=== PATIENT | male | born 1970 | race Caucasian/White ===

== ENCOUNTER 2016-12-28 13:55 | Emergency (ER) | payer OTHER ==
[~2016-12-28] VITALS: Ht 180.3 cm; Wt 109.9 kg
[2016-12-28 14:02] VITALS: TEMP 36.6; Ht 180.3 cm; Wt 109.9 kg
[2016-12-28] MEDS ORDERED: SODIUM CHLORIDE 0.9% 1000ML 1,000 ML IV STA (14:18)
--- NOTE | 2016-12-28 14:25 | EMERGENCY ROOM VISIT NOTE ---
History First contact with patient: 14:10 Chief Complaint: ABDOMINAL PAIN Stated Complaint: INTERNAL BLOCKAGE INTESTINES,SEVERE PAIN ON L SIDE Nursing Triage Summary: triage note: pt reports last bm was wednesday. pt reports he feels constipated and has left lower back pain "that pain started on december 19 when i started to feel constipated." History of Present Illness The patient is a 46 year old male who presents to the Emergency Room with complaints of constipation, flank pain and abdominal pain. The patient states it has been one week since his last normal bowel movement. He states that he has only had 2 bowel movements since December 19. He states that Wednesday he took several laxatives and had a bowel movement. He states that he has had pain in his left flank and in the left lower abdomen. The patient states the pain is rated a 5/10. The pain is worse with movement. He denies any fevers. He denies any pain in his chest or trouble breathing. He denies any nausea or vomiting. He denies diarrhea. He denies urinary symptoms. He denies any history of kidney stone or diverticulitis. He has had a colonoscopy in the past. He denies history of kidney stone. He reports a history of back problems and drives a truck for a living. He denies loss of bowel or bladder control, saddle anesthesia, numbness, tingling, weakness in the legs. Review of Systems A 10 system review of systems was completed with positives and pertinent negatives listed in the HPI. Past Medical/Surgical History Medical Problems: (1) Rheumatoid arthritis Social History Smoking Status: Current Every Day Smoker Occupation Status: employed Current/Historical Medications Scheduled PRN Prednisone (Prednisone), Unknown Dose PO for . Sulindac (Clinoril), Unknown Dose PO for . Allergies Coded Allergies: BEE STING (Unverified Allergy, Severe, 12/28/16) Physical Exam Vital Signs Date Time Temp Pulse Resp B/P (MAP) Pulse Ox O2 Delivery O2 Flow Rate FiO2 12/28/16 17:00 69 16 138/76 95 Room Air 12/28/16 16:00 67 18 131/71 96 Room Air 12/28/16 14:02 36.6 82 18 166/94 95 Room Air Physical Exam VITALS: Vitals are noted on the nurse's note and reviewed by myself. Vital signs stable. The patient is afebrile. He is not tachycardic, tachypneic or hypotensive. GENERAL: This is a 46-year-old male, in no acute distress, nondiaphoretic, well- developed well-nourished. SKIN: The skin was without rashes, erythema, edema, or bruising. There is no tenting of the skin. Capillary reflex less than 2 seconds. HEAD: Normocephalic atraumatic. EARS: The external ears are normal in appearance. EYES: Pupils equal round and reactive to light and accommodation. Conjunctivae without injection, sclerae without icterus. Extraocular movements intact. NOSE: Patent, turbinates without inflammation or discharge. MOUTH: Mucous membranes moist. Tonsils are not enlarged. Pharynx without erythema or exudate. Uvula midline. Airway patent. Tongue does not deviate. NECK: Supple without nuchal rigidity. No JVD. HEART: Regular rate and rhythm without murmurs gallops or rubs. LUNGS: Clear to auscultation bilaterally without wheezes, rales or rhonchi. No retractions or accessory muscle use. ABDOMEN: Positive bowel sounds x 4, hypoactive. Soft, mild left lower quadrant tenderness, without masses or organomegaly. There is mild tenderness to palpation over the left paraspinous muscles in the lumbar area. There is mild CVA tenderness. MUSCULOSKELETAL: No muscle atrophy, erythema, or edema noted. Full range of motion without joint tenderness in all extremities. No tenderness to palpation. Normal gait. Strength 5/5 throughout. NEURO: Patient was alert and oriented to person place and time. No focal neurological deficits. Medical Decision & Procedures ER Provider Diagnostic Interpretation: ABD/PELVIS NO IV OR ORAL CONT HISTORY: 46 years-old Male abdominal pain acute generalized abdominal pain, most pronounced in the left lower quadrant. Initial exam. COMPARISON: None available. TECHNIQUE: Multiple axial CT images of the abdomen and pelvis were obtained without contrast. A dose lowering technique was used consistent with the principals of ALARA. FINDINGS: Mild dependent bibasilar atelectasis. 4 mm pleural-based nodule of the lateral segment right middle lobe is noted on axial image 13. There is no pneumoperitoneum. The imaged inferior cardiac chambers are unremarkable. Nonspecific 5 mm low attenuating lesion involves the hepatic dome, too small to characterize. Statistically this would favor a cyst or hemangioma. The spleen, pancreas, gallbladder and adrenal glands appear normal. Kidneys, ureters, urinary bladder and prostate are unremarkable. Minimal atherosclerotic plaquing of the abdominal aorta is noted. No bulky adenopathy. No bowel obstruction. Nonspecific 5 mm calcification is seen involving the mid mesentery. There are a few scattered noninflamed colonic diverticula noted. The appendix and terminal ileum appear normal. Small fat filled periumbilical hernia is noted, diastases 1.5 cm. Remote appearing bilateral pars defects are seen at L4-L5 and L5-S1. Annular disc bulging is also noted at these levels. IMPRESSION: 1. No acute intra-abdominal or intrapelvic abnormality identified. Normal appendix. 2. Small fat filled periumbilical hernia. 3. 4 mm pleural-based noncalcified pulmonary nodule of the lateral segment right middle lobe, likely benign. 4. Remote appearing bilateral pars defects at L4-L5 and L5-S1 with annular disc bulging also seen at these levels. 5. Minimal colonic diverticulosis without diverticulitis. Please refer to below summary of Fleischner criteria recommendations for follow-up of incidental CT nodules (Emilee Bishop, Guidelines for management of small pulmonary nodules detected on CT scans: A statement from the Fleischner Society, Radiology 237: [id number].) SOLID NODULES Solitary nodule size: <6 mm * Low risk patients: no follow-up needed * high risk patients: optional CT at 12 months Note: newly detected indeterminate nodule in persons 35 years of age or older. * Low risk patients: minimal or absent history of smoking and/or other known risk factors * high risk patients: history of smoking or of other known risk factors (e.g. first degree relative with lung cancer, or exposure to asbestos, radon, uranium) * if a nodule up to 8 mm is partly solid or is ground glass further follow-up is required after 24 months to exclude possible slow growing adenocarcinoma (JULIO) The above report was generated using voice recognition software. It may contain grammatical, syntax or spelling errors. Laboratory Results 12/28/16 14:25 Red Blood Count 5.26, Mean Corpuscular Volume 90.9, Mean Corpuscular Hemoglobin 32.9, Mean Corpuscular Hemoglobin Concent 36.2, Mean Platelet Volume 9.3, Neutrophils (%) (Auto) 60.9, Lymphocytes (%) (Auto) 30.4, Monocytes (%) (Auto) 4.0, Eosinophils (%) (Auto) 3.7, Basophils (%) (Auto) 0.2, Neutrophils # (Auto) 3.65, Lymphocytes # (Auto) 1.82, Monocytes # (Auto) 0.24, Eosinophils # (Auto) 0.22, Basophils # (Auto) 0.01 12/28/16 14:25 Test 12/28/16 14:25 12/28/16 14:45 White Blood Count 5.99 K/uL (4.8-10.8) Red Blood Count 5.26 M/uL (4.7-6.1) Hemoglobin 17.3 g/dL (14.0-18.0) Hematocrit 47.8 % (42-52) Mean Corpuscular Volume 90.9 fL (80-100) Mean Corpuscular Hemoglobin 32.9 pg (25-34) Mean Corpuscular Hemoglobin Concent 36.2 g/dl (32-36) Platelet Count 251 K/uL (130-400) Mean Platelet Volume 9.3 fL (7.4-10.4) Neutrophils (%) (Auto) 60.9 % Lymphocytes (%) (Auto) 30.4 % Monocytes (%) (Auto) 4.0 % Eosinophils (%) (Auto) 3.7 % Basophils (%) (Auto) 0.2 % Neutrophils # (Auto) 3.65 K/uL (1.4-6.5) Lymphocytes # (Auto) 1.82 K/uL (1.2-3.4) Monocytes # (Auto) 0.24 K/uL (0.11-0.59) Eosinophils # (Auto) 0.22 K/uL (0-0.5) Basophils # (Auto) 0.01 K/uL (0-0.2) RDW Standard Deviation 43.6 fL (36.4-46.3) RDW Coefficient of Variation 13.3 % (11.5-14.5) Immature Granulocyte % (Auto) 0.8 % Immature Granulocyte # (Auto) 0.05 K/uL (0.00-0.02) Anion Gap 4.0 mmol/L (3-11) Est Creatinine Clear Calc Drug Dose 116.2 ml/min Estimated GFR () 105.2 Estimated GFR (Non- 90.8 BUN/Creatinine Ratio 6.4 (10-20) Calcium Level 8.7 mg/dl (8.5-10.1) Total Bilirubin 0.7 mg/dl (0.2-1) Aspartate Amino Transf (AST/SGOT) 11 U/L (15-37) Alanine Aminotransferase (ALT/SGPT) 19 U/L (12-78) Alkaline Phosphatase 73 U/L (45-117) Total Protein 7.2 gm/dl (6.4-8.2) Albumin 3.5 gm/dl (3.4-5.0) Globulin 3.7 gm/dl (2.5-4.0) Albumin/Globulin Ratio 0.9 (0.9-2) Lipase 95 U/L (73-393) Urine Color YELLOW Urine Appearance CLEAR (CLEAR) Urine pH 7.0 (4.5-7.5) Urine Specific [place] 1.013 (1.000-1.030) Urine Protein NEG (NEG) Urine Glucose (UA) NEG (NEG) Urine Ketones NEG (NEG) Urine Occult Blood NEG (NEG) Urine Nitrite NEG (NEG) Urine Bilirubin NEG (NEG) Urine Urobilinogen NEG (NEG) Urine Leukocyte Esterase NEG (NEG) Medications Administered Medications (Trade) Dose Ordered Sig/Radha Route Start Time Stop Time Status Last Admin Dose Admin Sodium Chloride 1,000 ml @ 999 mls/hr Q1H1M STAT IV 12/28/16 14:18 12/28/16 15:18 DC 12/28/16 14:18 999 MLS/HR Magnesium Citrate (Citrate Of Magnesia Soln) 296 ml NOW ONCE PO 12/28/16 17:00 12/28/16 17:01 DC 12/28/16 16:58 296 ML ED Course The patient was seen and examined. Previous visits were reviewed. The patient does not have a fever or leukocytosis. He does not have any significant electrolyte abnormality. Lipase is not elevated. Urinalysis is negative for urinary tract infection or hematuria. CT scan of the abdomen and pelvis was obtained as above. There is incidental note of a pulmonary nodule of which the patient was acknowledged. He does appear to have a bulging lumbar disc. The patient presents to the emergency department with left-sided low back pain. He reports constipation and left abdominal pain. The patient appears to have a bulging lumbar disc. His pain is worse with movement and occasionally sharp with the wrong movement. This may be musculoskeletal back pain. There is no evidence for bowel obstruction, kidney stone. The patient was offered a soapsuds enema but then decided he did not want one. He was instead given mag citrate to take at home. He should continue the stool softener. He should try [id number] medications. I advised him that any narcotics may make his constipation worse. He should contact his family doctor tomorrow to schedule a follow-up appointment for further evaluation and management. He should return with worsening symptoms. The case was discussed with Dr. Diaz who agrees with the assessment and treatment plan. Medical Decision DIFFERENTIAL DIAGNOSIS: Hepatitis, cholecystitis, cholangitis, biliary colic, pancreatitis, pneumonia, subdiaphragmatic abscess, appendicitis, inguinal hernia , nephrolithiasis, inflammatory bowel disease, mesenteric adenitis, peptic ulcer disease, GERD, gastritis, pancreatitis, myocardial infarction, pericarditis, ruptured aortic aneurysm, appendicitis, gastroenteritis, bowel obstruction, splenic infarct, diverticulitis, mesenteric ischemia, metabolic, peritonitis, among others. Impression Primary Impression: Bulging lumbar disc Additional Impression: Constipation Departure Information Dispostion Home / Self-Care Condition GOOD Referrals Jaiden Avitia M.D. (PCP) Forms Call Back Authorization, HOME CARE DOCUMENTATION FORM, IMPORTANT VISIT INFORMATION, Work Instructions Return To Work: 2 days Patient Instructions Back Pain Relieve, Constipation, My [employer] Additional Instructions Drink the mag citrate one half bottle and wait half hour to a few hours and drink the second half Aleve or Tylenol according to package instructions for the back pain Contact your family doctor to schedule a follow-up appointment for further evaluation and management. You may need a CT scan of the chest in 1 year to evaluate the lung nodule found on CT imaging today. Return with any worsening pain, fevers, vomiting, loss of bowel or bladder control, numbness in the groin, weakness, numbness, tingling in the legs Problem Qualifiers Additional Impression:
[2016-12-28] MEDS ORDERED: OPTIRAY 320 IV PRN (14:30)
[2016-12-28] MEDS ORDERED: PRD/1 PO (14:33)
[2016-12-28] MEDS ORDERED: SULI150T PO (14:33)
[2016-12-28 14:44] LABS: BASO % 0.2 %; BASO ABS # 0.01 K/uL (0-0.2); COMPLETE YES; EOS % 3.7 %; HEMATOCRIT 47.8 % (42-52); IG% 0.8 %; LYMPH % 30.4 %; LYMPH ABS # 1.82 K/uL (1.2-3.4); MEAN CELL VOLUME 90.9 fL (80-100); MEAN CORPUSCULAR HEMOGLOBIN 32.9 pg (25-34); MEAN CORPUSCULAR HGB CONC 36.2 g/dl (32-36); MEAN PLATELET VOLUME 9.3 fL (7.4-10.4); NEUT % 60.9 %; PLATELET COUNT 251 K/uL (130-400); RED BLOOD COUNT 5.26 M/uL (4.7-6.1); WHITE BLOOD COUNT 5.99 K/uL (4.8-10.8)
[2016-12-28 15:01] LABS: BUN/CREATININE RATIO 6.4 (10-20); CALCIUM 8.7 mg/dl (8.5-10.1); CREATININE 0.98 mg/dl (0.60-1.40); POTASSIUM 4.1 mmol/L (3.5-5.1)
[2016-12-28 15:04] LABS: ALB/GLOB RATIO 0.9 (0.9-2)
[2016-12-28 15:26] LABS: URINE APPEARANCE CLEAR (CLEAR); URINE BILIRUBIN NEG (NEG); URINE COLOR YELLOW; URINE NITRITE NEG (NEG); URINE SPECIFIC GRAVITY 1.013 (1.000-1.030); UROBILINOGEN NEG (NEG); ZZUR CULT IF INDIC CLEAN CATCH NO
[2016-12-28 15:31] LABS: MANUAL MICROSCOPIC REQUIRED? NO; REVIEW REQ? NO
--- NOTE | 2016-12-28 15:52 | DIAGNOSTIC IMAGING REPORT ---
ABD/PELVIS NO IV OR ORAL CONT HISTORY: 46 years-old Male abdominal pain acute generalized abdominal pain, most pronounced in the left lower quadrant. Initial exam. COMPARISON: None available. TECHNIQUE: Multiple axial CT images of the abdomen and pelvis were obtained without contrast. A dose lowering technique was used consistent with the principals of EMMETT. FINDINGS: Mild dependent bibasilar atelectasis. 4 mm pleural-based nodule of the lateral segment right middle lobe is noted on axial image 13. There is no pneumoperitoneum. The imaged inferior cardiac chambers are unremarkable. Nonspecific 5 mm low attenuating lesion involves the hepatic dome, too small to characterize. Statistically this would favor a cyst or hemangioma. The spleen, pancreas, gallbladder and adrenal glands appear normal. Kidneys, ureters, urinary bladder and prostate are unremarkable. Minimal atherosclerotic plaquing of the abdominal aorta is noted. No bulky adenopathy. No bowel obstruction. Nonspecific 5 mm calcification is seen involving the mid mesentery. There are a few scattered noninflamed colonic diverticula noted. The appendix and terminal ileum appear normal. Small fat filled periumbilical hernia is noted, diastases 1.5 cm. Remote appearing bilateral pars defects are seen at L4-L5 and L5-S1. Annular disc bulging is also noted at these levels. IMPRESSION: 1. No acute intra-abdominal or intrapelvic abnormality identified. Normal appendix. 2. Small fat filled periumbilical hernia. 3. 4 mm pleural-based noncalcified pulmonary nodule of the lateral segment right middle lobe, likely benign. 4. Remote appearing bilateral pars defects at L4-L5 and L5-S1 with annular disc bulging also seen at these levels. 5. Minimal colonic diverticulosis without diverticulitis. Please refer to below summary of Fleischner criteria recommendations for follow-up of incidental CT nodules (Emilee Bishop, Guidelines for management of small pulmonary nodules detected on CT scans: A statement from the Fleischner Society, Radiology 237: [phone].) SOLID NODULES Solitary nodule size: <6 mm * Low risk patients: no follow-up needed * high risk patients: optional CT at 12 months Note: newly detected indeterminate nodule in persons 35 years of age or older. * Low risk patients: minimal or absent history of smoking and/or other known risk factors * high risk patients: history of smoking or of other known risk factors (e.g. first degree relative with lung cancer, or exposure to asbestos, radon, uranium) * if a nodule up to 8 mm is partly solid or is ground glass further follow-up is required after 24 months to exclude possible slow growing adenocarcinoma (JULIO) The above report was generated using voice recognition software. It may contain grammatical, syntax or spelling errors. Electronically signed by: Mynor Fried M.D. 12/28/2016 3:51 PM Dictated Date/Time: 12/28/2016 3:44 PM
[2016-12-28] MEDS ORDERED: SOAP SUDS ENEMA PR STA (15:59)
[2016-12-28 17:00] VITALS: BP 138/76; PULSE 69; O2SAT 95
[2016-12-28] MEDS ORDERED: MAGNESIUM CITRATE 296 ML/BTL PO ONE (17:00)
== END 2016-12-28 17:13 | disposition home or self-care (01) ==
LOC: C.EDB 13:58 → C.EDC 17:13
DX: M51.26 Other intervertebral disc displacement, lumbar region (principal); K59.00 Constipation, unspecified; M06.9 Rheumatoid arthritis, unspecified; F17.210 Nicotine dependence, cigarettes, uncomplicated